=== PATIENT | female | born 1975 | race Caucasian/White ===

== ENCOUNTER 2017-04-28 12:02 | Emergency (ER) | payer OTHER ==
[2017-04-28 13:06] VITALS: BP 148/87
--- NOTE | 2017-05-01 15:04 | UC ---
Hip/Pelvis Pain - HPI Summary HPI Summary: 42 y/o female presents to the urgent care c/o Rt hip pain for the past 2 weeks. Pt reports she has Hx of Sciatica and Slipped Capital femoral Epiphysis at age 11. Pain is 4/10 dull and burning at times and radiates to the Rt lower leg with mild numbness. Worse when she she sits "moldovan style" and if she sits too long. She has been taking Ibuprofen to help with the pain. Pt denies saddle anesthesia, urinary or fecal incontinence,SOB, chest pain, calf pain, abdominal pain, N/V/D - History Of Current Complaint Chief Complaint: UCLowerExtremity Stated Complaint: RT HIP PAIN Time Seen by Provider: 04/28/17 14:00 Hx Obtained From: Patient Hx Last Menstrual Period: ablation ?: No Onset/Duration: Gradual Onset, Lasting Weeks - 2 weeks, Still Present Severity Initially: Mild Severity Currently: Mild Pain Intensity: 4 Pain Scale Used: 0-10 Numeric Location: Discrete At: - RT hip, Radiates To: - RT leg Character Of Pain: Aching, Burning Alleviating Factor(s): Rest Associated Signs And Symptoms: Negative: Swelling, Redness, Fever, Knee Pain - Risk Factors Septic Arthritis Risk Factor: Negative - Allergies/Home Medications Allergies/Adverse Reactions: Allergies Allergy/AdvReac Type Severity Reaction Status Date / Time Penicillins Allergy Hives Verified 04/28/17 13:06 Tramadol [From Ultram] Allergy "felt like Verified 04/28/17 13:06 my heart was racing", vomiting, diaphoresis Home Medications: Home Medications Levothyroxine TAB* [Synthroid 125 MCG TAB*] 125 mcg PO 0800 04/28/17 [History Confirmed 04/28/17] PMH/Surg Hx/FS Hx/Imm Hx Previously Healthy: Yes Endocrine History: Hypothyroidism - Surgical History Surgical History: Yes Surgery Procedure, Year, and Place: Right Hip pins place and removed. Fatty tumor removed from neck. Breast Lumpectomies-BILATERAL. Bilateral Carpal Tunnel Release. D&C s/p Miscarraige. Essure Procedure. UTERINE ABLASION. LAP MATEO - Family History Family History: Hypothyrodism - Social History Occupation: Employed Full-time Lives: With Family Alcohol Use: Rare Substance Use Type: None Smoking Status (MU): Never Smoked Tobacco Household Exposure Type: Cigarettes Review of Systems Constitutional: Negative Skin: Negative Eyes: Negative ENT: Negative Respiratory: Negative Cardiovascular: Negative Gastrointestinal: Negative Genitourinary: Negative Motor: Negative Neurovascular: Negative Musculoskeletal: Decreased ROM - RT hip, Other: - RT hip pain Neurological: Negative Psychological: Negative Is Patient Immunocompromised?: No All Other Systems Reviewed And Are Negative: Yes Physical Exam Triage Information Reviewed: Yes Appearance: Well-Appearing, No Pain Distress, Well-Nourished, Obese Vital Signs: Initial Vital Signs Temp 96.9 F 04/28/17 13:02 Pulse 75 04/28/17 13:02 Resp 16 04/28/17 13:02 BP 148/87 04/28/17 13:02 Pulse Ox 97 04/28/17 13:02 Vital Signs Reviewed: Yes Eyes: Positive: Conjunctiva Clear ENT: Positive: Normal ENT inspection, Hearing grossly normal, Pharynx normal, TMs normal, Uvula midline Neck: Positive: Supple, Nontender, No Lymphadenopathy Respiratory: Positive: Chest non-tender, Lungs clear, Normal breath sounds Cardiovascular: Positive: RRR, No Murmur, Pulses Normal, Brisk Capillary Refill Abdomen Description: Positive: Nontender, No Organomegaly, Soft. Negative: CVA Tenderness (R), CVA Tenderness (L) Bowel Sounds: Positive: Present Musculoskeletal: Positive: Strength Intact, ROM Intact, No Edema, Other: - Hip: Pt is able to ambulate without difficulty or assistance, pain, limp, antalgic gait. No surface trauma, ecchymosis. No erythema, warmth. No deformity, crepitus, or obvious asymmetry of the affected leg compared to the other. No TTP over the symphysis pubis, ischial bone, iliac crest, trochanter, SI notch, quadriceps, femoral triangle, inguinal ligament. Point tenderss over the RT mid buttocks on depp palaption and while doing abduction. No inguinal lymphadenopathy. ROM unlimited and without pain. Normal flexion, Distal motor and neurovascular status are intact. Hip Injury Course/Dx - Course Course Of Treatment: 42 y/o female presents to the urgent care c/o Rt hip pain for the past 2 weeks. Pt reports she has Hx of Sciatica and Slipped Capital femoral Epiphysis at age 11. Pain is 4/10 dull and burning at times and radiates to the Rt lower leg with mild numbness. Worse when she she sits " moldovan style" and if she sits too long. She has been taking Ibuprofen to help with the pain. Pt denies saddle anesthesia, urinary or fecal incontinence,SOB, chest pain, calf pain, abdominal pain, N/V/D. Hx obtained. Pt with only Point tenderness over the mid RT gluteus on examination. Pt with Hx of Sciatica. Pt Rx Narpoxen to alleviate symptoms and advised to f/u with PT referral and Orthopedic Dr Fulton in 1 week if not improvement of symptoms. Pt's BP is elevated today advised to decrease salt in diet, monitor BP and f/u with PCP for further management. Pt understood and agreed with discharge instructions. - Differential Dx/Diagnosis Differential Diagnosis/HQI/PQRI: Arthritis, Contusion, Sciatica, Sprain, Strain Provider Diagnoses: 1- RT acute hip pain. 2- RT side hip Sciatica. 3-Elevated BP w/o Hx of HTN Discharge - Discharge Plan Condition: Stable Disposition: HOME Prescriptions: Naproxen [Naproxen 500 mg] 500 mg PO Q8H PRN #30 tab PRN Reason: Pain Patient Education Materials: Sciatica (ED), Low Sodium Diet (ED), Hip Pain (ED) Referrals: Bartolo Dunaway PA [Primary Care Provider] - 1 Week Sameer Devi MD [Medical Doctor] - 1 Week Additional Instructions: 1- Please take Naproxen PO as directed after meals for pain. 2- Avoid strenuous exercise of heavy lifting. 3- Please follow up with Orthopedic Dr Devi or your PCP in 1 week if not improvement of symptoms, for further management. 4- F/u PT referral for further evaluation and treatment. 5- Your BP is elevated today. please decrease salt in your diet, monitor BP and if it continues to be elevated please f/u with your PCP for further management
== END 2017-04-28 14:26 | disposition home or self-care (01) ==
LOC: UCCORT 12:02
DX: M25.551 Pain in right hip (principal); M54.31 Sciatica, right side; R03.0 Elevated blood-pressure reading, without diagnosis of hypertension; E03.9 Hypothyroidism, unspecified; E66.9 Obesity, unspecified; Z88.5 Allergy status to narcotic agent; Z88.0 Allergy status to penicillin
CPT/HCPCS: 99212; G0463

== ENCOUNTER 2019-02-19 14:45 | Emergency (ER) | payer OTHER ==
--- OUTSIDE RECORDS SUMMARY | 2019-02-19 14:53 | XMS REPORT | Continuity of Care Document ---
:1975 External Reference #:[id number] Author Name Alon Bejarano MD (transmitted by agent of provider Lizbeth Leyva) Address [address] [place] [address] Care Team Providers Name Role Phone Patricio Dunaway PA - Medical Care Team Information [employer] Ronit Madden [employer] Care Team Information [employer] [phone] Problems Description No Information Available Social History Type Date Description Comments Sex Unknown Tobacco Use Start: Unknown Never Smoked Cigarettes ETOH Use Rarely consumes alcohol Recreational Drug Use Never Used Drugs Tobacco Use Start: Unknown Patient has never smoked Allergies, Adverse Reactions, Alerts Active Allergies Reaction Severity Comments Date Penicillin hives 10/15/2009 Ultram tachycardia,vomiting,diaphoresis 10/15/2009 Medications Active Medications SIG Qnty Indications Ordering Provider Date Levothyroxine Sodium take 1 tablet 30tabs Jose Alfredo Moreau, 11/05/2015 125mcg by mouth once M.D. Tablets daily Zoloft daily Unknown 175mg Immunizations Description No Information Available Vital Signs Date Vital Result Comment 12/21/2018 8:35am Weight 233.00 lb Height 64 inches 5'4" BMI (Body Mass Index) 40.0 kg/m2 BP Systolic 129 mmHg BP Diastolic 87 mmHg Heart Rate 68 /min O2 % BldC Oximetry 97 % Body Temperature 97.0 F Pain Level 0 11/22/2018 9:49am Weight 234.00 lb Height 64 inches 5'4" BMI (Body Mass Index) 40.2 kg/m2 BP Systolic 140 mmHg BP Diastolic 84 mmHg Heart Rate 71 /min O2 % BldC Oximetry 94 % Body Temperature 98.4 F Pain Level 0 Results Test Date Facility Test Result H/L Range Note TSH+Free T4 11/22/2018 [facility] TSH Thyroid <pending> Stimulating Horm T4 Free Thyroxine <pending> Procedures Date Code Description Status 11/22/2018 98884 Ultrasound Head/Neck Completed 07/07/2018 96283 Sleep Study, Simultaneous Recording Of Completed Ventilation,Unattended 12/28/2013 85207887 Mammogram Completed Medical Devices Description No Information Available Encounters Type Date Location Provider Dx Diagnosis Office Visit 12/21/2018 Main Office Alon Bejarano MD M62.08 Separation of muscle 8:30a (nontraumatic), other site E66.9 Obesity, unspecified Office Visit 11/22/2018 9:45a Main Office Jose Alfredo Moreau, E03.[place] Hypothyroidism, M.D. unspecified E04.2 Nontoxic multinodular goiter G47.33 Obstructive sleep apnea (adult) (pediatric) K21.9 Gastro-esophageal reflux disease without esophagitis Assessments Date Code Description Provider 12/21/2018 M62.08 Separation of muscle (nontraumatic), Alon Bejarano MD other site 12/21/2018 E66.9 Obesity, unspecified Alon Bejarano MD 11/22/2018 E03.9 Hypothyroidism, unspecified Jose Alfredo Moreau M.D. 11/22/2018 E04.2 Nontoxic multinodular goiter Jose Alfredo Moreau M.D. 11/22/2018 G47.33 Obstructive sleep apnea (adult) Jose Alfredo Moreau M.D. (pediatric) 11/22/2018 K21.9 Gastro-esophageal reflux disease Jose Alfredo Moreau M.D. without esophagitis 07/07/2018 G47.33 Obstructive sleep apnea (adult) Sleep Lab - Neo Yousif MD (pediatric) Plan of Treatment 12/21/2018 - Alon Bejarano, MDM62.08 Separation of muscle (nontraumatic), other siteComments:1) The assessment was informed to her.2) No evidence of rcurrence of umbilical hernia. 3) Possible increased risk of epigastric hernia in futureFollow up:RTO prnRecommendations:1) Weight control , including diet, exercise , and also to consider bariatric surgery as option.E66.9 Obesity, unspecifiedRecommendations:same as above Functional Status Description No Information Available Mental Status Description No Information Available Referrals Refer to Reason for Referral Status Appt Date Jose Alfredo Moreau M.D. [facility] Created [address] [place] [address] [phone] Jose Alfredo Moreau M.D. Created [address] [place] [phone]
[2019-02-19 15:02] VITALS: BP 128/73
--- NOTE | 2019-02-19 15:20 | UC ---
Hip/Pelvis Pain - HPI Summary HPI Summary: It is a 44-year-old female presenting with right hip pain for the past a few months that has worsened over the past week. She also notes hearing a popping sound a couple days ago. Describes it as an aching pain "inside her joint" that intermittently radiates to right lower back. She notes increased pain with ambulating and activity. Denies pain while sitting and at rest. Denies numbness and tingling. Denies weakness of the leg or back. Denies difficulty or changes in BMs and urination. Patient notes that she was treated for a right slipped capital femoral epiphysis at the age of 11. - History Of Current Complaint Chief Complaint: UCLowerExtremity Stated Complaint: RIGHT HIP PAIN Hx Obtained From: Patient Hx Last Menstrual Period: endometrial ablation: no periods Onset/Duration: Gradual Onset Severity Currently: Severe Pain Intensity: 7 Pain Scale Used: 0-10 Numeric - Allergies/Home Medications Allergies/Adverse Reactions: Allergies Allergy/AdvReac Type Severity Reaction Status Date / Time Penicillins Allergy Hives Verified 02/19/19 15:03 tramadol Allergy Vomiting Verified 02/19/19 15:03 Home Medications: Home Medications Diclofenac Sodium [Diclofenac Sodium ER] 100 mg PO DAILY 02/19/19 [History Confirmed 02/19/19] PMH/Surg Hx/FS Hx/Imm Hx Endocrine History: Thyroid Disease - Surgical History Surgical History: Yes Surgery Procedure, Year, and Place: Right Hip pins place and removed. Fatty tumor removed from neck. Breast Lumpectomies-BILATERAL. Bilateral Carpal Tunnel Release. D&C s/p Miscarraige. Essure Procedure. UTERINE ABLASION. LAP MATEO - Family History Family History: Hypothyrodism - Social History Alcohol Use: Rare Substance Use Type: None Smoking Status (MU): Never Smoked Tobacco Household Exposure Type: Cigarettes Review of Systems All Other Systems Reviewed And Are Negative: Yes Constitutional: Positive: Negative ENT: Positive: Negative Respiratory: Positive: Negative. Negative: Shortness Of Breath Cardiovascular: Positive: Negative. Negative: Palpitations, Chest Pain Gastrointestinal: Positive: Negative. Negative: Abdominal Pain, Vomiting, Nausea Genitourinary: Positive: Negative Neurovascular: Positive: Negative Musculoskeletal: Positive: Arthralgia, Myalgia. Negative: Decreased ROM, Edema Neurological: Positive: Negative. Negative: Weakness, Paresthesia, Numbness Physical Exam Triage Information Reviewed: Yes Appearance: Well-Appearing, No Pain Distress, Well-Nourished Vital Signs: Initial Vital Signs Temp 97.8 F 02/19/19 14:53 Pulse 71 02/19/19 14:53 Resp 18 02/19/19 14:53 BP 128/73 02/19/19 14:53 Pulse Ox 98 02/19/19 14:53 Vital Signs Reviewed: Yes Eyes: Positive: Conjunctiva Clear ENT: Positive: Hearing grossly normal Neck: Positive: Supple Respiratory: Positive: No respiratory distress, No accessory muscle use Cardiovascular: Positive: Pulses Normal, Brisk Capillary Refill Musculoskeletal Exam: Normal Musculoskeletal: Positive: Strength Intact, ROM Intact, No Edema, Other: - no tenderness to palpation of right hip or lower back Neurological: Positive: Alert Psychological: Positive: Age Appropriate Behavior Skin Exam: Normal Diagnostics - Radiology right hip xray Radiology Interpretation Completed By: Radiologist Summary of Radiographic Findings: IMPRESSION: Mild degenerative changes of the right hip without recent fracture. Hip Injury Course/Dx - Course Course Of Treatment: Discussed with patient the mild degenerative changes of the right hip found on x -ray. Instructed her to take naproxen as directed for pain relief. Informed her that she should not take any ibuprofen or other NSAIDs while taking this medication. Informed her she may rest and use ice and/or heat for pain relief. Instructed her to follow up with her orthopedic doctor or the orthopedic referral as listed below for further evaluation. She voiced understanding and agreed to the treatment plan. - Differential Dx/Diagnosis Provider Diagnosis: Degenerative joint disease of right hip Discharge ED - Sign-Out/Discharge Documenting (check all that apply): Patient Departure All imaging exams completed and their final reports reviewed: Yes - Discharge Plan Condition: Stable Disposition: HOME Prescriptions: Naproxen [Naproxen 500 mg tab] 500 mg PO BID PRN #60 tablet.dr FUENTES Reason: Pain - Moderate Patient Education Materials: Osteoarthritis (ED) Referrals: David Cha MD [Medical Doctor] - 1 Week Bartolo Dunaway PA [Primary Care Provider] - 1 Week Additional Instructions: As discussed, the xrays of the hip showed mild degenerative changes of the right hip. Take naproxen as prescribed for pain relief. Do not take ibuprofen or other NSAIDS while taking naproxen. You may rest and use ice and/or heat to help relieve pain. Follow up with your orthopedic doctor or the orthopedic referral as listed below for further evaluation. Go to the emergency room if pain worsens, the leg becomes cold and numb, or you are not able to bear weight. - Billing Disposition and Condition Condition: STABLE Disposition: Home
== END 2019-02-19 16:10 | disposition home or self-care (01) ==
LOC: UCCORT 14:45
DX: M16.11 Unilateral primary osteoarthritis, right hip (principal); M79.10 Myalgia, unspecified site; Z88.5 Allergy status to narcotic agent; Z88.0 Allergy status to penicillin; Z98.890 Other specified postprocedural states
CPT/HCPCS: 99212; G0463